=== PATIENT | female | born 1970 | race African-American/Black ===

== ENCOUNTER 2019-11-04 14:41 | Emergency (ER) | payer BC ==
[2019-11-04 14:47] VITALS: BP 168/87; PULSE 94; TEMP 98; BMI 41.6
--- NOTE | 2019-11-04 15:04 | PDOC ---
History of Present Illness - General Chief Complaint: Nausea/Vomiting Stated Complaint: VOMITING/FEVER/BODYACHE Time Seen by Provider: 11/04/19 14:53 - History of Present Illness Initial Comments: 11/04/19 14:57 CHIEF COMPLAINT: cough HISTORY OF PRESENT ILLNESS: 49 yo F with hx of HTN [facility] x 2 weeks. Patient reports she was seen by her PCP and was diagnosed with a viral URI and went back to work after 3 days of rest, but since then her symptoms have only worsened and she has had worsening cough, chest discomfort with cough, and vomited today. Patient is unsure if she has had a fever but "feels chills" No recent travel or sick contacts. PAST MEDICAL HISTORY: Denies past medical history FAMILY HISTORY: Denies SOCIAL HISTORY: Denies tobacco, alcohol, illicit drug use. SURGICAL HISTORY: Denies ALLERGIES: No known drug allergies REVIEW OF SYSTEMS General/Constitutional: Chills. Denies weakness, weight change. HEENT: Denies change in vision. Denies ear pain or discharge. Denies sore throat. Cardiovascular: Denies chest pain or shortness of breath. Respiratory: Cough x 2 weeks with wheezing the past few days. Denies hemoptysis. Gastrointestinal: Denies nausea, vomiting, diarrhea or constipation. Denies rectal bleeding. Genitourinary: Denies dysuria, frequency, or change in urination. Musculoskeletal: Denies joint or muscle swelling or pain. Denies neck or back pain. Skin and breasts: Denies rash or easy bruising. Neurologic: Denies headache, vertigo, loss of consciousness, or loss of sensation. Psychiatric: Denies depression or anxiety. PHYSICAL EXAM General Appearance: Well-appearing, appropriately dressed. No apparent distress. HEENT: EOMI, PERRLA, normal ENT inspection, normal voice, TMs normal, pharynx normal. No conjunctival pallor. No photophobia, scleral icterus. Neck: Supple. Trachea midline. No tenderness, rigidity, carotid bruit, stridor , lymphadenopathy, or thyromegaly. Respiratory/Chest: Lungs CTAB. No shortness of breath, chest tenderness, respiratory distress, accessory muscle use. No crackles, rales, rhonchi, stridor , wheezing, dullness Cardiovascular: RRR. S1, S2. No JVD, murmur, bradycardia, tachycardia. Gastrointestinal/Abdominal: Normal bowel sounds. Abdomen soft, non-distended. No tenderness or rebound tenderness. No organomegaly, pulsatile mass, guarding , hernia, hepatomegaly, splenomegaly. Musculoskeletal/Extremities: Normal inspection. FROM of all extremities, normal capillary refill. Pelvis Stable. No CVA tenderness. No tenderness to extremities, pedal edema, swelling, erythema or deformity. Integumentary: Appropriate color, dry, warm. 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 Fully oriented, alert. Appropriate mood/affect. Motor strength 5/5. No appreciable EOM palsy, facial droop or sensory deficit. Past History - Past Medical History Allergies/Adverse Reactions: Allergies Allergy/AdvReac Type Severity Reaction Status Date / Time No Known Allergies Allergy Verified 11/04/19 14:47 Home Medications: Ambulatory Orders Albuterol Sulfate Inhaler - [Ventolin HFA Inhaler -] 1 - 2 inh PO Q4H #1 inhaler 11/04/19 Amlodipine Besylate [Norvasc -] 10 mg PO DAILY 11/04/19 Benzonatate [Tessalon Pearls -] 100 mg PO TID #21 capsule 11/04/19 predniSONE [Deltasone -] 20 mg PO DAILY #5 tablet 11/04/19 COPD: No HTN: Yes - Psycho Social/Smoking Cessation Hx Smoking History: Current every day smoker Information on smoking cessation initiated: No *Physical Exam - Vital Signs Last Vital Signs Temp Pulse Resp BP Pulse Ox 98 F 94 H 18 168/87 95 11/04/19 14:43 11/04/19 14:43 11/04/19 14:43 11/04/19 14:43 11/04/19 14:43 Medical Decision Making - Medical Decision Making 11/04/19 15:09 49 yo F with hx of HTN [facility] x 2 [facility]. -duoneb -CXR 11/04/19 16:09 Chest x-ray negative for acute pathology. Clinical presentation consistent with acute viral upper respiratory infection. Will treat symptomatically. Advised patient to take medication as prescribed and follow up with PCP within the next week. Advised patient of signs and symptoms for return to ED. Patient verbalized understanding and agrees to plan. Discharge - Discharge Information Problems reviewed: Yes Clinical Impression/Diagnosis: Viral infection Condition: Stable Disposition: HOME - Admission No - Additional Discharge Information Prescriptions: Albuterol Sulfate Inhaler - [Ventolin HFA Inhaler -] 1 - 2 inh PO Q4H #1 inhaler Benzonatate [Tessalon Pearls -] 100 mg PO TID #21 capsule predniSONE [Deltasone -] 20 mg PO DAILY #5 tablet - Follow up/Referral Referrals: Dontae White [Primary Care Provider] - - Patient Discharge Instructions Patient Printed Discharge Instructions: DI for Acute Bronchitis Additional Instructions: Please use medications as directed. Follow-up with your primary care doctor within the next week for continued monitoring and evaluation of your symptoms. If you develop chest pain, shortness of breath, worsening cough, persistent fever, or any new or worsening symptoms please return to the ER. - Post Discharge Activity Work/Back to School Note: Back to Work
[2019-11-04] MEDS ORDERED: ALBUTEROL SO4 2.5/IPRATROPIUM 0.5 INH SOL 3 ML VIAL.NEB. NEB ONE (15:09)
== END 2019-11-04 16:03 | disposition home or self-care (01) ==
LOC: JERFT 14:41
PROC: 3E0F7GC Introduction of Other Therapeutic Substance into Respiratory Tract, Via Natural or Artificial Opening (ICD-10-PCS; principal; 2019-11-04)
DX: J06.9 Acute upper respiratory infection, unspecified (principal); B97.89 Other viral agents as the cause of diseases classified elsewhere
CPT/HCPCS: 71046-TC-FY; 99281-25